=== PATIENT | male | born 2005 | race Caucasian/White ===

== ENCOUNTER 2023-12-23 14:38 | Emergency (ER) | payer BC, SELFPAY ==
[2023-12-23 14:50] VITALS: BP 138/74; PULSE 83; RESP 20; TEMP 37.1; O2SAT 100
--- NOTE | 2023-12-23 15:48 | ECG_ITS ---
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
--- NOTE | 2023-12-23 15:52 | ED.GENADULT ---
HPI - General Adult General Chief complaint: Ear Stated complaint: Dizziness Source: patient Mode of arrival: ambulatory Limitations: no limitations History of Present Illness HPI narrative: Patient presents for evaluation of dizziness for the last 4 days. He indicates he noted symptoms in the morning on Monday. He had consumed six hard lemonades the night before did not feel considerably intoxicated. He has never had the symptoms in the past. His symptoms are fairly constant with interval worsening. He reports a frontal and bilateral temporal headache with pain in his ears. He also has some discomfort in his throat. He states he has been slurring his words and also feels like he is in a stupor . Denies any chest pain, shortness of breath, palpitations, vomiting, hearing deficits, or urinary symptoms. Denies illicit drug use. States stress levels are manageable. Related Data Home Medications Medication Instructions Recorded Confirmed No Home Medications 12/23/23 12/23/23 Allergies Allergy/AdvReac Type Severity Reaction Status Date / Time No Known Allergies Allergy Verified 12/23/23 14:40 Review of Systems Review of Systems: CONSTITUTIONAL: Denies fever, chills, or sweats. EYES: Denies visual changes, redness, or discharge. ENT: Reports bilateral ear pain and some discomfort in his throat. CARDIOVASCULAR: Denies chest pain, palpitations, or edema. RESPIRATORY: Denies cough or dyspnea. GASTROINTESTINAL: Denies abdominal pain, nausea, vomiting, or diarrhea. GENITOURINARY: Denies dysuria or hematuria. SKIN: Denies rash or itching. MUSCULOSKELETAL: Denies back pain, joint pain, or myalgia. NEUROLOGIC: Reports dizziness and intermittent sensation that fixed objects are moving. Reports slurred speech and sensation that he is in a stupor . Reports headache. PSYCHIATRIC: Denies anxiety or depression. [facility] Past Medical History Medical History No pertinent past medical history Surgical History Surgical History No pertinent past surgical history Family History Family History Mother Family history non-contributory Social History Social History Alcohol intake: current Alcohol use details: social Substance use: never Living arrangements: with family Gender identity (if verbalized by the patient): Male Sexual Orientation (if Verbalized by the Patient): Straight or Heterosexual Spiritual care concerns: No Exam Narrative: GENERAL: Well-appearing, well-nourished, and in no acute distress. HEAD: Normocephalic, atraumatic. EYES: PERRLA and EOMI. ENT: Nares clear, no rhinorrhea or epistaxis. Mucous membranes moist. Oropharynx without tonsillar hypertrophy exudate or other lesions. Bilateral TMs pearly [place] nonbulging NECK: Supple. No adenopathy or masses. No carotid bruits or JVD CHEST: Clear to auscultation. No respiratory distress. No wheezes rales or rhonchi HEART: Regular rate and rhythm. No murmur heard. Normal peripheral pulses. ABDOMEN: Soft, nontender, nondistended, normal active bowel sounds. EXTREMITIES: Normal range of motion. No edema. SKIN: Warm, dry, no rash. NEURO: Normal [id number] exam. Able to perform rapid alternating movements without difficulty. Face symmetric. No nystagmus. Negative [place]-Hallpike maneuver. No focal deficits. Alert and oriented x3. PSYCH: Normal mood and affect. Course Course Emergency Course: This is a 18-year-old male who presented for evaluation of dizziness. He has some neurological symptoms which are concerning. Blood sugar here was normal. EKG showed early repolarization but normal sinus rhythm. I recommended he go to the hospital for further evaluation. He is agreeable to this plan. His
[2023-12-23 15:59] LABS: Glucose Point of Care 81 mg/dl (65-105)
== END 2023-12-23 16:02 | disposition short-term general hospital (02) ==
LOC: EXPBETH 14:46
PROVIDERS: Emergency Provider Nurse Practitioner; PCP Pediatrics Pediatric Emergency Medicine
DX: R42 Dizziness and giddiness (principal)
CPT/HCPCS: 82948; 93005; 99213; G0463

== ENCOUNTER 2025-10-13 16:34 | Emergency (ER) | payer OTHER, BC, SELFPAY ==
--- NOTE | 2025-10-13 16:38 | ED_ITS ---
HPI - Skin/Abscess/Foreign Bdy General Chief complaint: Skin/Abscess/Foreign Body Stated complaint: Skin Problem Time Seen by Provider: 10/13/25 16:36 Source: patient Mode of arrival: ambulatory Limitations: no limitations History of Present Illness HPI narrative: Darwin is a 19 year old female patient presenting to the clinic today with c/o small tiny bumps to his penis for the last week. He reports he shaves in this area. Sores do not itch and are not pain. No penile discharge or testicle pain. Has not had intercourse since July. Requesting tetanus shot in the clinic- has a very small cut to the left leg- states he cut it on steel this morning. Bleeding controlled. Related Data Home Medications ?Medication ?Instructions ?Recorded ?Confirmed ?Last Taken ?Type No Home Medications 12/23/23 10/13/25 U nknown History Allergies Allergy/AdvReac Type Severity Reaction Status Date / Time No Known Allergies Allergy Verified 10/13/25 16:50 Review of Systems Review of Systems: Pertinent positives per HPI. Patient denies any fever, chills, rash, headache, visual changes, dizziness, cough, runny nose, sore throat, shortness of breath, chest pain, palpitations, nausea, vomiting, diarrhea, constipation, abdominal pa in, or any urinary issues. PMFSH Past Medical History Medical History No pertinent past medical history Surgical History Surgical History No pertinent past surgical history Family History Family History Mother Family history non-contributory Social History Social History Alcohol intake: current Alcohol use details: social Substance use: never Living arrangements: with family Gender identity (if verbalized by the patient): Male Sexual Orientation (if Verbalized by the Patient): Straight or Heterosexual Spiritual care concerns: No Comments At the time of my signature, I reviewed and agree with the nursing past medical, surgical, social, and family history. There is no relevant family history pertinent to the patient complaint. Exam Narrative: General: Well-developed, well nourished, in no apparent distress Head: Normocephalic, atraumatic. Cardio: Regular rate and rhythm, s1 and s2 normal, no murmur appreciated. Resp: Clear to auscultation bilaterally, no rhonchi, rales, wheezing or rubs. : Circumcised male without corneal adhesions, urethra is patent, no penile discharge,milia to the left lateral penis shaft/skin, no tenderness to palpation, no testicle pain or scrotal lesions/masses. Integumentary: [place], warm, and dry, intact without lesion, 0.5 cm superficial cut to the left anterior leg, bleeding controlled Course Course Level of Care: Express Care Visit Vital Signs Vital signs: Vital Signs Temperature 36.9 C 10/13/25 16:45 Pulse Rate 80 10/13/25 16:45 Respiratory Rate 20 10/13/25 16:45 Blood Pressure 118/69 10/13/25 16:45 Pulse Oximetry 100 10/13/25 16:45 Oxygen Delivery Room Air 10/13/25 16:45 Temperature 36.9 C 10/13/25 16:45 Pulse Rate 80 10/13/25 16:45 Respiratory Rate 20 10/13/25 16:45 Blood Pressure 118/69 10/13/25 16:45 Pulse Oximetry 100 10/13/25 16:45 Oxygen Delivery Room Air 10/13/25 16:45 [facility] MDM Narrative Medical decision making narrative: At the time of visit patient is resting comfortably on the exam table. Patient appears to be nontoxic. C/o small tiny bumps to his penis for the last week. He reports he shaves in this area. Sores do not itch and are not pain. No penile discharge or testicle pain. Has not had intercourse since July. On exam patient has a 0.5 cm superficial cut to the left anterior leg, bleeding controlled, circumcised male without corneal adhesions, urethra is patent, no penile discharge,milia to the left lateral penis shaft/skin, no tenderness to palpation, no testicle pain or scrotal lesions/masses. Plan: I suspect patient has milia to the skin/shaft of the left lateral penis. Patient also requesting tetanus shot in the clinic- has a very small cut to the left leg- states he cut it on steel this morning. Supportive measures were discussed with the patient and they voiced understanding discharge instructions and agrees to treatment plan. Return precautions reviewed Differential Diagnosis Differential Diagnosis: Differential diagnostic considerations for skin/abscess/foreign body issues include abscess of skin or subcutaneous tissue, viral exanthem, dermatophytosis, urticaria, herpes zoster, allergic reaction to drug, cellulitis, eczema, insect bites, impetigo, contact dermatitis, vasculitis. Discharge Plan Discharge Clinical Impression: Milia, Superficial laceration of lower extremity Patient Disposition: Home Condition: Stable Instructions: Antibiotic Form, Laceration (ED), Acute Rash (ED) Additional Instructions: I suspect you have milia of the skin of your penis This is not have sexually transmitted infection. Tdap was updated in the clinic today Keep wound clean and dry Wash daily with soap and water May apply triple antibiotic ointment to the wound daily for the next 48 hours then leave open to air Follow-up with your primary care doctor as needed Patient Language: Japanese Prescriptions: No Action No Home Medications Follow-up/Referrals: UNKNOWN,DOCTOR [Primary Care Provider] Time of Disposition: 16:56 Quality NIHSS Nursing Documentation ED NIHSS nursing documentation: reviewed/agree
[2025-10-13 16:45] VITALS: BP 118/69; PULSE 80; RESP 20; TEMP 36.9; O2SAT 100
--- OUTSIDE RECORDS SUMMARY | 2025-10-13 17:18 | XMS_ITS | Clinical Summary ---
Author Organization [facility] Address [address] [place] [address] Care Team Providers Care Rn Social Work Name Role Phone Ngozi Mensah MD Primary Care Provider [phone] Allergies No known active allergies Medications No known medications Active Problems Problem Noted Date Diagnosed Date Sore throat 04/29/2025 Fatigue 04/29/2025 Body aches 04/29/2025 Immunizations Immunization Administration Dates Next Due DTaP 03/03/2005 DTaP / Hep B / IPV 06/03/2004,04/02/2004, 004 DTaP / IPV 12/09/2008 HPV, Quadrivalent 10/13/2014,12/16/2013 HPV9 01/08/2016 Hep A, Ped Unspecified 2006 Hep A, Unspecified 2007 Hep B, Unspecified 2003 HiB 03/03/2005,06/03/2004,04/02/2004 ,02/13/2004 Influenza LAIV (Nasal) 08/17/2012,08/19/2011 Influenza Nasal, Unspecified 08/30/2013 Influenza, Split 10/25/2010,07/28/2009, 8 Influenza, Unspecified 09/24/2007 MMR 12/09/2008,12/09/2004 Meningococcal Conjugate (Menveo) 01/27/2020,11/24 Pneumococcal Conjugate 7-Valent 03/03/2005,06/03,04/02/2004,02/13/2004 Tdap 12/16/2013 Varicella 12/09/2008,12/09/2004 Social History Tobacco Use Types Packs/Day Years Used Date Smoking Tobacco: Never Smokeless Tobacco: Never Tobacco Cessation:Counseling Given: Not Answered Alcohol Use Standard Drinks/Week Comments Not Currently 0 (1 standard drink = 0.6 oz pur e alcohol) AUDIT-C Answer Date Recorded Q1: How often do you have a drink containing alc ohol? Monthly or less 05/29/2025 Q2: How many drinks containi ng alcohol do you have on a typical day when you are drinking? 1 or 2 05/29/2025 Q3: How often do you have si x or more drinks on one occasion? Never 05/29/2025 PHQ-2 Answer Date Recorded PHQ-2 Total Score (If total score is 3 or more points, staff should administer the PHQ-9) 0 05/29/2025 Personal Safety Answer Date Recorded Have you ever been in or are you currently in a harmful physical or emotional relationship or is someone making you feel afraid or unsafe? 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 Gender Identity Not on file Sexual Orientation Not on file Last Filed Vital Signs Vital Sign Reading Time Taken Comments Blood Pressure 108/66 05/29/2025 9:13 AM CDT Pulse 104 05/29/2025 9:13 AM CDT Temperature 36.3 C (97.3 F) 01/24/2025 5:22 PM CDT Respiratory Rate 16 05/29/2025 9:13 AM CDT Oxygen Saturation 100% 05/29/2025 9:13 AM CDT Inhaled Oxygen Concentration - - Weight 55.3 kg (121 lb 14.4 oz) 05/29/2025 9:13 AM CDT Height 177.8 cm (5' 10) 05/29/2025 9:13 AM CDT Body Mass Index 17.49 05/29/2025 9:13 AM CDT Plan of Treatment Health Maintenance Due Date Last Done Comments DTaP/Tdap/Td Vaccine (7 - Td or Tdap) 12/16/2023 12/16/2013, 12/09/2008, 03/03/2005, Additional history exists Influenza Vaccine (#1) 2025 3, 08/17/2012, 08/17/2012, Additional history exists Meningococcal B Vaccine (1 of 2 - Standard) 05/27/2026 Postponed from 2019 (Patient declined, but will receive in the future) Depression Screening 05/29/2026 05/29/2025, 04/29/20 Hepatitis C Screening 05/29/2026 Postpo keon from 2003 (Patient declined, but will receive in the future) Regular Well Visit/Exam 18-64 05/29/2026 05/29/2025 Hepatitis B Screening Completed 06/03/2004 , 04/02/2004, 02/13/2004, Additional history exists Pneumococcal vaccine <65 Completed 005, 06/03/2004, 04/02/2004, Additional history exists Varicella Vaccines Completed 12/09/2008, 12/09/2004 HPV Vaccines Completed 01/08/2016, 09/23, 12/16/2013 Meningococcal Vaccine Completed 01/27/2020, 015 Insurance [employer] OOS Member Subscriber Plan / Payer (Ef fective 2024-Present) Name:Darwin Kevin Relation to Subscriber:Child Name:Henry Agarwal Date of :1981 (Home) Address: [address] [place] [address] Payer ID:[id number] (NAIC) Type: [employer]IANCE Address: [address] [facility] [employer] [place] [address] Care Teams Rn Social Work Relationship Specialty Start Date End Date Ngozi Mensah MD [address] [place] [id number] PCP - General Family Medicine 05/29/25
--- OUTSIDE RECORDS SUMMARY | 2025-10-13 17:18 | XMS_ITS | Clinical Summary ---
Author Organization [facility] [employer] Address [address] [place] [address] Care Team Providers Care Sheet Metal Fabricator Name Role Phone Juhi Smith MD Primary Care Provider [phone] Source Comments [facility] [employer],non-owned Affiliates and Associated Physician Practices is amultiple site organization consisting of ambulatory clinics and hospital sitesin [place], [place], [place] and [place]. This disclosure is being madepursuant to the Care Everywhere program and may not contain all information available regarding this patient. Last updated 18.[facility] [employer] Allergies No known active allergies Medications * Be aware that medications may not be up to date on this document. Alwaysverify current medications with the patient. 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 Gender Identity Not on file Sexual Orientation Not on file Last Filed Vital Signs Vital Sign Reading Time Taken Comments Blood Pressure 108/75 06/08/2011 5:14 PM CDT Pulse 81 06/08/2011 5:14 PM CDT Temperature 36.4 C (97.6 F) 06/08/2011 5:14 PM CDT Respiratory Rate 20 06/08/2011 5:14 PM CDT Oxygen Saturation 100% 06/08/2011 5:14 PM CDT Inhaled Oxygen Concentration - - Weight 24.4 kg (53 lb 12.7 oz) 06/08/2011 5:18 P M CDT Height - - Body Mass Index - - Plan of Treatment Health Maintenance Due Date Last Done Comments HIV SCREENING 2018 HPV VACCINE (1 - Male 3-dose series) 2018 MENINGOCOCCAL (Group B) VACC INE SHARED DECISION-MAKING (1 of 2 - Standard) 2019 HEPATITIS C SCREENING 12/03/2021 DTAP/TDAP/TD VACCINES (1 - Tdap) 2022 HEPATITIS B VACCINE (1 of 3 - 19+ 3-dose series) 2022 DEPRESSION SCREENING 10/23/2024 COVID-19 VACCINE (1 - 2024-2 6 season) 2025 INFLUENZA VACCINE (#1) 2025 ZOSTER VACCINE (1 of 2) 2053 HIB VACCINE Aged Out No longer eligi ble based on patient's age to complete this topic MENINGOCOCCAL GROUPS A/C/Y/W VACCINE Aged Out No longer eligible b ased on patient's age to complete this topic PNEUMOCOCCAL VACCINE Aged Out No long er eligible based on patient's age to complete this topic Care Teams Sheet Metal Fabricator Relationship Specialty Start Date End Date Juhi Smith MD [address] [place] [address] PCP - General 06/08/11
--- OUTSIDE RECORDS SUMMARY | 2025-10-13 17:18 | XMS_ITS | Encounter Summary ---
Author Organization [facility] Address [address] [place] [address] Phone Care Team Providers Care Boat Joiner Name Role Phone Madie Ly MD Primary Care Provider + No, Physician Primary Care Provider [phone] Merry Madden MD Primary Care Provider [phone] Ngozi Mensah MD Primary Care Provider [phone] Encounter Details Date Type Department Care Team (Late st Contact Info) Description 01/19/2018 Orders Only [facility] Care ProviderLiu MD [address] [place] [id number] Social History Tobacco Use Types Packs/Day Years Used Date Smoking Tobacco: Never Assessed Sex and Gender Information Value Date Recorded Sex Assigned at Not on file 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
[2025-10-13] MEDS: TETANUS,DIPHTHERIA,AC PERTUSSIS ADULT (0.5 ML) BOOSTRIX IM (17:19)
== END 2025-10-13 17:39 | disposition home or self-care (01) ==
PROVIDERS: Emergency Provider Nurse Practitioner Family
DX: L72.0 Epidermal cyst (principal); S81.812A Laceration without foreign body, left lower leg, initial encounter; W45.8XXA Other foreign body or object entering through skin, initial encounter; Z23 Encounter for immunization
CPT/HCPCS: 90471; 90715; 99212; G0463